=== PATIENT | male | born 1940 | race Caucasian/White ===

== ENCOUNTER → 2016-07-21 | Outpatient (CLI) | payer MEDICARE, OTHER | END | disposition home or self-care (01) | LOC: PCVCIMAG 08:38 | PROVIDERS: ATTEND Internal Medicine | DX: I25.10 Atherosclerotic heart disease of native coronary artery without angina pectoris (principal); I10 Essential (primary) hypertension; I35.0 Nonrheumatic aortic (valve) stenosis; E78.5 Hyperlipidemia, unspecified; I65.29 Occlusion and stenosis of unspecified carotid artery | CPT/HCPCS: 80061; 93005; 93306; G0463 ==

== ENCOUNTER → 2017-01-20 | Outpatient (CLI) | payer MEDICARE, OTHER | END | disposition home or self-care (01) | LOC: PCVCCLINIC 12:00 | PROVIDERS: ATTEND Internal Medicine | DX: I25.10 Atherosclerotic heart disease of native coronary artery without angina pectoris (principal); I35.0 Nonrheumatic aortic (valve) stenosis; I10 Essential (primary) hypertension; I65.23 Occlusion and stenosis of bilateral carotid arteries; E78.2 Mixed hyperlipidemia; R93.1 Abnormal findings on diagnostic imaging of heart and coronary circulation; Z79.82 Long term (current) use of aspirin; Z87.891 Personal history of nicotine dependence; Z88.8 Allergy status to other drugs, medicaments and biological substances | CPT/HCPCS: G0463 ==

== ENCOUNTER → 2017-07-29 | Outpatient (CLI) | payer MEDICARE, OTHER | END | disposition home or self-care (01) | LOC: PCVCCLINIC 10:23 | DX: I25.10 Atherosclerotic heart disease of native coronary artery without angina pectoris (principal); R93.1 Abnormal findings on diagnostic imaging of heart and coronary circulation; I35.0 Nonrheumatic aortic (valve) stenosis; I10 Essential (primary) hypertension; I65.23 Occlusion and stenosis of bilateral carotid arteries; E78.2 Mixed hyperlipidemia; Z87.891 Personal history of nicotine dependence; Z79.899 Other long term (current) drug therapy; Z79.82 Long term (current) use of aspirin | CPT/HCPCS: 80061; 93005; G0463 ==

== ENCOUNTER → 2018-02-04 | Outpatient (CLI) | payer MEDICARE, OTHER | END | disposition home or self-care (01) | LOC: PCVCCLINIC 12:41 | PROVIDERS: ATTEND Internal Medicine | DX: I25.10 Atherosclerotic heart disease of native coronary artery without angina pectoris (principal); I10 Essential (primary) hypertension; I35.0 Nonrheumatic aortic (valve) stenosis; R93.1 Abnormal findings on diagnostic imaging of heart and coronary circulation; I65.23 Occlusion and stenosis of bilateral carotid arteries; E78.2 Mixed hyperlipidemia; Z87.891 Personal history of nicotine dependence; Z79.899 Other long term (current) drug therapy; Z79.82 Long term (current) use of aspirin; Z88.8 Allergy status to other drugs, medicaments and biological substances | CPT/HCPCS: 93005; G0463 ==

== ENCOUNTER → 2018-08-08 | Outpatient (CLI) | payer MEDICARE, OTHER ==
--- NOTE | 2018-08-08 10:27 | PCVCIMAG ---
APPROVED REPORT Study performed: 08/08/2018 09:31:26 EXAM: Comprehensive 2D, Doppler, and color-flow Echocardiogram Patient Location: Echo lab Status: routine BSA: 1.89 HR: 61 bpmBP: 152/70 mmHg Rhythm: NSR Other Information Study Quality: Adequate Risk Factors: Cardiac Risk Factors: HTN Indications aortic stenosis 2D Dimensions IVSd: 14.95 (7-11mm)LVOT Diam: 20.99 (18-24mm) LVDd: 40.79 mm PWd: 12.01 (7-11mm)Ascending Ao: 37.08 (22-36mm) LVDs: 28.82 (25-40mm) Left Atrium: 40.52 (27-40mm) Aortic Root: 36.28 mm LV Single Plane 4CH: 64.38 % LV Single Plane 2CH: 70.42 % Biplane EF: 68.4 % Volumes Left Atrial Volume (Systole) Single Plane 4CH: 86.93 mLSingle Plane 2CH: 82.89 mL LA ESV Index: 46.00 mL/m2 Aortic Valve AoV Peak Sami.: 3.55 m/s AO Peak Gr.: 50.39 mmHgLVOT Max P.35 mmHg AO Mean Gr.: 22.21 mmHgLVOT Mean P.16 mmHg AO V2 Mean: 2.09 m/sLVOT Max V: 1.44 m/s AO V2 VTI: 74.54 cmLVOT Mean V: 0.93 m/s KEATON (VTI): 1.45 [id number] V1 VTI: 31.20 cm KEATON Vmax: 1.40 cm2 SV (LVOT): 107.86 mL Mitral Valve E/A Ratio: 0.7 MV Decel. Time: 346.49 ms MV E Max Sami.: 0.88 m/s MV A Sami.: 1.23 m/s IVRT: 107.27 ms Pulmonary Valve PV Peak Sami.: 1.14 m/sPV Peak Gr.: 5.23 mmHg Pulmonary Vein P Vein S: 0.34 m/sP Vein A: 0.39 m/s P Vein D: 0.56 m/sP Vein A Dur.: 148.8 msec P Vein S/D Ratio: 0.61 Tricuspid Valve TR Peak Sami.: 2.81 m/s TR Peak Gr.: 31.49 mmHg TV Vmax: 0.57 m/s Left Ventricle The left ventricle is normal size. There is normal LV segmental wall motion. Moderate concentric left ventricular hypertrophy. Left ventricular systolic function is normal. The left ventricular ejection fraction is within the normal range. LVEF is 65%. Mild diastolic dysfunction is present (impaired relaxation pattern). Right Ventricle The right ventricle is normal size. The right ventricular systolic function is normal. Atria Left atrium is moderately dilated. The right atrium size is normal. Aortic Valve The aortic valve is moderately calcified Trace aortic regurgitation. There is mild-moderate valvular aortic stenosis. Calculated aortic valve area is 1.4 cm2 with maximum pressure gradient of 50 mmHg and mean pressure gradient of 22 mmHg. Mitral Valve The mitral valve is normal in structure. There is no mitral valve regurgitation noted. No evidence of mitral valve stenosis. Tricuspid Valve The tricuspid valve is normal in structure. Mild tricuspid regurgitation with PAP of 38 mmHg. Pulmonic Valve The pulmonary valve is normal in structure. There is mild pulmonic valvular regurgitation. Great Vessels The aortic root is normal in size. IVC is normal in size and collapses >50% with inspiration. Pericardium There is no pericardial effusion. There is no pleural effusion. <Conclusion> Left ventricular systolic function is normal. There is normal LV segmental wall motion. LVEF is 65%. Mild diastolic dysfunction Left atrium is moderately dilated. The aortic valve is moderately calcified, mild-moderate stenosis. No insufficiency Calculated aortic valve area is 1.4 cm2 with maximum pressure gradient of 50 mmHg and mean pressure gradient of 22 mmHg. The mitral valve is normal in structure. No mitral insufficiency Mild tricuspid regurgitation with PAP of 38 mmHg. There is no pericardial effusion.
== END | disposition home or self-care (01) ==
LOC: PCVCIMAG 09:29
PROVIDERS: ATTEND Internal Medicine
DX: I08.2 Rheumatic disorders of both aortic and tricuspid valves (principal); R93.1 Abnormal findings on diagnostic imaging of heart and coronary circulation; I10 Essential (primary) hypertension; I65.23 Occlusion and stenosis of bilateral carotid arteries; E78.2 Mixed hyperlipidemia; I25.10 Atherosclerotic heart disease of native coronary artery without angina pectoris; Z79.899 Other long term (current) drug therapy; Z87.891 Personal history of nicotine dependence
CPT/HCPCS: 93005; 93306; G0463

== ENCOUNTER → 2019-02-08 | Outpatient (CLI) | payer MEDICARE, OTHER | END | disposition home or self-care (01) | LOC: PCVCCLINIC 14:04 | PROVIDERS: ATTEND Internal Medicine | DX: R93.1 Abnormal findings on diagnostic imaging of heart and coronary circulation (principal); I35.0 Nonrheumatic aortic (valve) stenosis; I10 Essential (primary) hypertension; I65.23 Occlusion and stenosis of bilateral carotid arteries; E78.2 Mixed hyperlipidemia | CPT/HCPCS: 93005; G0463 ==